=== PATIENT | male | born 1990 | race African-American/Black ===

== ENCOUNTER 2016-09-15 07:15 | Emergency (ER) | payer OTHER ==
[~2016-09-15] VITALS: Ht 180.3 cm; Wt 122.0 kg
[~2016-09-15 07:15] MED LIST: ADVAIR 250/501 DISK IH; BACTRIM,SEPT1 TABLET PO; BENEFIBER98 GM PO; CIPRO500 MG PO; COLACE100 MG PO; ERYTHROMYCIN O3.5 GM BOTH EYES; FLAGYL500 MG PO; FLEET ENEMA-AD118 ML PR; FLOVENT DISKUS1 DIS1 IH; KEFLEX500 MG PO; LIDOVEX60 GM TP; LISINOPRIL20 MG PO; LITHIUM CARBON300 MG NG; MIRALAX17 GM PO; NAPROSYN500 MG PO; OMEPRAZOLE40 M1 PO; PRILOSEC40 MG PO; PROAIR HFA8.5 GM IH; PROCTOFOAM-HC10 GM PR; RANITIDINE HCL150 MG PO; TESSALON PERLE100 MG PO; ULTRAM50 MG PO; VALTREX1000 MG PO; VENTOLIN HFA18 GM IH; ZANTAC150 MG PO; ZESTRIL,PRINIVI10 MG PO; ZOFRAN4 MG PO
[2016-09-15] MEDS ORDERED: TESSALON PERLE100 MG PO (07:33)
[2016-09-15 07:40] VITALS: BP 130/90
== END 2016-09-15 07:50 | disposition home or self-care (01) ==
LOC: EME 07:15
DX: J06.9 Acute upper respiratory infection, unspecified (principal); H57.8 Other specified disorders of eye and adnexa; J45.909 Unspecified asthma, uncomplicated; I10 Essential (primary) hypertension
CPT/HCPCS: 99281; 99283